=== PATIENT | female | born 2000 | race Two or more races ===

== ENCOUNTER 2022-08-28 04:39 | Emergency (ER) | payer MEDICAID, OTHER ==
[~2022-08-28] VITALS: Ht 172.7 cm; Wt 59.6 kg
[2022-08-28 05:07] VITALS: BP 132/85
== END 2022-08-28 07:14 | disposition left against medical advice (07) ==
LOC: ER 04:39
DX: R04.0 Epistaxis (principal); Z53.21 Procedure and treatment not carried out due to patient leaving prior to being seen by health care provider

== ENCOUNTER 2022-11-10 01:45 | Emergency (ER) | payer MEDICAID ==
[~2022-11-10] VITALS: Ht 172.7 cm; Wt 59.2 kg
[2022-11-10] MEDS ORDERED: MUPI2OIN2 EX (03:06)
[2022-11-10] MEDS ORDERED: CEPH500C PO (03:06)
[2022-11-10] MEDS ORDERED: TETANUS-DIPTH-ACEL PERTUSSIS 0.5ML SYR Tdap IM ONE (03:15)
[2022-11-10] MEDS ORDERED: IBUPROFEN 600 MG TAB PO ONE (03:15)
[2022-11-10 06:01] VITALS: BP 107/62; PULSE 79; RESP 18; TEMP 98.2; O2SAT 99
== END 2022-11-10 06:28 | disposition home or self-care (01) ==
LOC: ER 01:47
DX: S70.311A Abrasion, right thigh, initial encounter (principal); Y08.89XA Assault by other specified means, initial encounter; Y93.89 Activity, other specified; Y92.89 Other specified places as the place of occurrence of the external cause; Y99.8 Other external cause status
CPT/HCPCS: 90471; 90715